=== PATIENT | male | born 1985 | race Hispanic/Latino ===

== ENCOUNTER 2020-02-15 20:51 | Emergency (ER) | payer OTHER ==
[2020-02-15] MEDS ORDERED: Acetaminophen 500 MG TAB ONE (21:04)
--- NOTE | 2020-02-16 07:20 | RAD ---
AP CHEST: HISTORY: Fever, cough. Positive COVID-19. FINDINGS: Hazy infiltrate seen in mid peripheral left mid lung. Evidence of [id number] infiltrate in th e mid and lower right lung. Heart and mediastinum unremarkable. IMPRESSION: There are hazy bilateral peripheral infiltrates consistent with COVID-19 pneumonitis. POS: [facility]
[2020-02-16 11:37] LABS: SARS-CoV-2 MS2 Positive; SARS-CoV-2 N Gene Positive; SARS-CoV-2 S Gene Positive; SARS-CoV-2 orf1ab Positive
--- NOTE | 2020-02-16 14:33 | EKG ---
Test Reason : Blood Pressure : / mmHG Vent. Rate : 098 BPM Atrial Rate : 098 BPM P-R Int : 128 ms QRS Dur : 100 ms QT Int : 326 ms P-R-T Axes : 027 004 017 degrees QTc Int : 416 ms Normal sinus rhythm Normal ECG Confirmed by WARREN HALL, LARY ([id number]), book or script editor VIKI GALLAGHER ([id number]) on 02/16/2020 2:33:16 PM Referred By: Confirmed By:LARY KELLEY MD
== END 2020-02-15 22:36 | disposition home or self-care (01) ==
LOC: ERS 20:51
DX: U07.1 COVID-19 (principal); R50.9 Fever, unspecified
CPT/HCPCS: 71045; 87635; 93005; U0003